=== PATIENT | female | born 1950 | race African-American/Black ===

== ENCOUNTER 2016-11-15 21:04 | Inpatient (IN) | payer MEDICAID, OTHER ==
[~2016-11-15] VITALS: Ht 160 cm; Wt 103.4 kg
[2016-11-15 22:01] LABS: Basophils # (auto) 0.1 uL; Basophils % (auto) 0.9 % (0.0-2.0); CONDITION Y; Eosinophils # (auto) 0.2 uL; Eosinophils % (auto) 2.3 % (0.0-7.0); Hematocrit 37.5 % (36.0-46.0); Hemoglobin 12.5 g/dL (12.2-16.2); Lymphocytes # (auto) 4.1 uL; Lymphocytes % (auto) 47.8 % (10.0-50.0); Mean Corpuscular Hemoglobin 30.5 pg (28.0-32.0); Mean Corpuscular Hgb Conc. 33.3 g/dL (32.0-36.0); Mean Corpuscular Volume 91.6 fL (80.0-100.0); Mean Platelet Volume 9.1 fL (7.4-10.4); Monocytes # (auto) 0.5 uL; Monocytes % (auto) 5.5 % (0.0-12.0); Neutrophils # (auto) 3.7 uL; Neutrophils % (auto) 43.5 % (37.0-80.0); Platelet Count (auto) 333 10^3/uL (140-450); Red Cell Distribution Width 14.1 % (11.6-16.0); White Blood Cell 8.6 10^3/uL (4.4-10.8)
[2016-11-15 22:16] LABS: INR 0.97 (0.9-1.15); Partial Thromboplastin Time 23.6 sec (22.64-33.71); Prothrombin Time 10.6 sec (9.37-12.3)
[2016-11-15 22:25] LABS: Albumin 3.8 g/dL (3.4-5.0); Alkaline Phosphatase 85 U/L (45-117); Anion Gap 8 (5-15); Aspartate Aminotransferase 15 U/L (15-37); BUN/Creatinine Ratio 19.4; Bilirubin, Total 0.3 mg/dL (0.2-1.0); Blood Urea Nitrogen 13 mg/dL (7-18); Calcium 9.1 mg/dL (8.5-10.1); Carbon Dioxide 29 mmol/L (21-32); Chloride 105 mmol/L (98-107); GFR African American 113 mL/min; GFR Non-African American 93 mL/min; Glucose 109 mg/dL (74-106); Potassium 3.8 mmol/L (3.5-5.1); Sodium 142 mmol/L (136-145); Total Protein 8.4 g/dL (6.4-8.2)
[2016-11-15 22:29] LABS: B-Type Natriuretic Peptide 69.86 pg/mL (0-100)
[2016-11-15 22:30] LABS: Temperature: 22.3 C (20.0-25.0)
[2016-11-16] MEDS ORDERED: LEVOFLOXACIN 750MG 150 ML IV ONE ×2 (05:00→05:13)
[2016-11-16] MEDS ORDERED: diphenhdrAMINE HCL 50 MG/1 ML VL ONE (05:39)
[2016-11-16] MEDS ORDERED: diphenhdrAMINE HCL 50 MG/1 ML VL IV ONE (06:00)
[2016-11-16] MEDS ORDERED: MORPHINE SULF INJ 2 MG/ML SYRINGE 1ML IV PRN (07:00)
[2016-11-16] MEDS ORDERED: ONDANSETRON HCL 4 MG/2 ML VIAL IV PRN (07:00)
[2016-11-16] MEDS ORDERED: NITROGLYCERIN 0.4 MG SL TAB SL PRN (07:00)
[2016-11-16] MEDS ORDERED: ACETAMINOPHEN 325 MG TAB PO PRN (07:00)
[2016-11-16] MEDS ORDERED: cloNIDine HCL 0.1 MG TAB PO PRN (07:00)
[2016-11-16] MEDS ORDERED: DEXTROSE (50%) 50ML SYRG IV PRN ×2 (07:00→14:15)
[2016-11-16] MEDS ORDERED: HYDROcodone-ACET 5/325MG TAB PO PRN (07:00)
[2016-11-16] MEDS: SODIUM CHLORIDE 0.9% 1,000 ML IV SCH (07:05)
[2016-11-16] MEDS ORDERED: IOHEXOL 350 MG/ML 100ML IJ ONE (07:12)
[2016-11-16] MEDS ORDERED: LISI2.5T47 PO (08:57)
[2016-11-16] MEDS ORDERED: HCTZ25T PO (08:57)
[2016-11-16] MEDS ORDERED: METF-370 PO (08:57)
[2016-11-16 09:14] VITALS: BP 136/77
[2016-11-16 09:31] VITALS: BP 136/75
[2016-11-16] MEDS: ENOXAPARIN SOD 40 MG/0.4 ML SYRINGE SC SCH (10:24)
[2016-11-16] MEDS: HCTZ 25 MG TAB PO SCH (10:25)
[2016-11-16] MEDS: FAMOTIDINE 20 MG TAB PO SCH ×2 (10:25→21:09)
[2016-11-16] MEDS ORDERED: ACCU-CHEK COMFORT CURVE STRIP VI SCH (12:00)
[2016-11-16] MEDS ORDERED: InsuLIN REG 1unit/0.01ml Soln (100units/ml) SC SCH (12:00)
[2016-11-16] MEDS: InsuLIN REG 1unit/0.01ml Soln (100units/ml) SC SCH ×2 (17:00→21:11)
[2016-11-16] MEDS: ACCU-CHEK COMFORT CURVE STRIP VI SCH ×2 (17:16→21:09)
[2016-11-16 20:00] VITALS: BP 159/78
[2016-11-16 21:30] VITALS: BP 159/78
[2016-11-17 05:00] VITALS: BP 140/70
[2016-11-17 05:54] LABS: Basophils # (auto) 0 uL; Basophils % (auto) 0.4 % (0.0-2.0); CONDITION Y; Eosinophils # (auto) 0.2 uL; Eosinophils % (auto) 2.9 % (0.0-7.0); Hematocrit 38.1 % (36.0-46.0); Hemoglobin 12.7 g/dL (12.2-16.2); Lymphocytes # (auto) 3.7 uL; Lymphocytes % (auto) 53.9 % (10.0-50.0); Mean Corpuscular Hemoglobin 30.4 pg (28.0-32.0); Mean Corpuscular Hgb Conc. 33.3 g/dL (32.0-36.0); Mean Corpuscular Volume 91.3 fL (80.0-100.0); Mean Platelet Volume 9.4 fL (7.4-10.4); Monocytes # (auto) 0.4 uL; Monocytes % (auto) 6.6 % (0.0-12.0); Neutrophils # (auto) 2.5 uL; Neutrophils % (auto) 36.2 % (37.0-80.0); Platelet Count (auto) 327 10^3/uL (140-450); White Blood Cell 6.8 10^3/uL (4.4-10.8)
[2016-11-17] MEDS: SODIUM CHLORIDE 0.9% 1,000 ML IV SCH (06:39)
[2016-11-17] MEDS: ACCU-CHEK COMFORT CURVE STRIP VI SCH ×3 (06:39→16:51)
[2016-11-17] MEDS: InsuLIN REG 1unit/0.01ml Soln (100units/ml) SC SCH ×3 (06:39→16:51)
[2016-11-17 06:49] LABS: Potassium 3.7 mmol/L (3.5-5.1)
[2016-11-17 06:59] LABS: Albumin 3.6 g/dL (3.4-5.0); BUN/Creatinine Ratio 14.3; Bilirubin, Total 0.6 mg/dL (0.2-1.0); Total Protein 7.7 g/dL (6.4-8.2)
[2016-11-17 08:00] VITALS: BP 141/92
[2016-11-17 09:00] VITALS: BP 141/92
[2016-11-17] MEDS: ENOXAPARIN SOD 40 MG/0.4 ML SYRINGE SC SCH (09:20)
[2016-11-17] MEDS: FAMOTIDINE 20 MG TAB PO SCH (09:20)
[2016-11-17] MEDS ORDERED: ASPirin-EC 81 mg tab PO SCH (10:00)
[2016-11-17] MEDS: HCTZ 25 MG TAB PO SCH (10:04)
[2016-11-17 13:00] VITALS: BP 114/76
[2016-11-17] MEDS ORDERED: ASP81EC PO (13:31)
[2016-11-17] MEDS ORDERED: LISINOPRIL 5 MG TAB PO ONE (13:45)
[2016-11-17] MEDS ORDERED: FAM20T PO (14:36)
[2016-11-17] MEDS ORDERED: HCTZ25T PO (14:36)
[2016-11-17 16:01] VITALS: BP 141/92
== END 2016-11-17 17:45 | disposition home or self-care (01) | DRG 203 ==
LOC: ER 21:08 → TELE 21:09 → TELE-E-ADS 11-16 08:17 → TELE-WESTW 11-16 15:05
PROVIDERS: ADMIT Nurse Practitioner; ATTEND Internal Medicine
DX: R07.89 Other chest pain (principal); Z68.41 Body mass index [BMI] 40.0-44.9, adult; I10 Essential (primary) hypertension; E11.9 Type 2 diabetes mellitus without complications; E66.9 Obesity, unspecified; K21.9 Gastro-esophageal reflux disease without esophagitis; Z79.82 Long term (current) use of aspirin; Z88.1 Allergy status to other antibiotic agents; Z79.899 Other long term (current) drug therapy
CPT/HCPCS: 36415; 71010; 71275; 80053; 80061; 82962; 83036; 83605; 83735; 83880; 84443; 84484; 85025; 85379; 85610; 85730; 87040; 93005; 93306; 93970; 96361; 96374; J1956

== ENCOUNTER 2019-01-10 12:18 | Emergency (ER) | payer MEDICAID ==
[~2019-01-10] VITALS: Ht 160 cm; Wt 96.2 kg
[~2019-01-10 12:18] MED LIST: ASP81EC PO; FAM20T PO; HCTZ25T PO; LISI2.5T47 PO; METF-370 PO
[2019-01-10 13:21] VITALS: BP 149/77
[2019-01-10] MEDS ORDERED: KETOROLAC TROMETH 60MG/2ML VIAL IM ONE (13:30)
== END 2019-01-10 14:25 | disposition home or self-care (01) ==
LOC: ER 12:18
DX: M17.0 Bilateral primary osteoarthritis of knee (principal); M75.91 Shoulder lesion, unspecified, right shoulder; E11.9 Type 2 diabetes mellitus without complications; K21.9 Gastro-esophageal reflux disease without esophagitis; I10 Essential (primary) hypertension; M19.90 Unspecified osteoarthritis, unspecified site; Z88.1 Allergy status to other antibiotic agents; Z79.82 Long term (current) use of aspirin
CPT/HCPCS: 73562; 96372; 99283; J1885